=== PATIENT | male | born 1990 | race Hispanic/Latino ===

== ENCOUNTER → 2022-05-15 | Day surgery (SDC) | payer OTHER ==
[~2022-05-15] MED LIST: DEXAMETHASONE SOD PHOS INJ 4 MG/ML SDV ONE; EPINEPHRINE HCL 1:1000 1ML 1 MG/ML AMP ONE; KETOROLAC TROMETHAMINE 30 MG/ML VIAL ONE; LIDOCAINE HCL 2% LOCAL INJ 5 ML SDV VIAL INJ ONE; MUPIROCIN 2% OINT 22 GM TUBE ONE; OFLOXACIN 0.3% (OTIC SOL) 5 ML BTL ONE; ONDANSETRON HCL INJ 2MG/ML 2ML 2 MG/ML VIAL ONE; POVIDONE IODINE 0.05% 0.05 % ML PO ONE; PROPOFOL IV EMULSION 10 MG/ML 20 ML VIAL ONE; ROCURONIUM BROMIDE 10 MG/ML 5ML VIAL IV ONE; SEVOFLURANE INHAL SOLN 250 ML PEN BTL ONE; SUCCINYLCHOLINE CHLORIDE 20 MG/ML 10ML VIAL ONE
[2022-05-15 13:52] VITALS: BP 120/73
== END | disposition home or self-care (01) ==
LOC: OR 08:44
PROVIDERS: ATTEND Otolaryngology Otolaryngology/Facial Plastic Surgery
DX: H72.92 Unspecified perforation of tympanic membrane, left ear (principal); H66.92 Otitis media, unspecified, left ear; H90.72 Mixed conductive and sensorineural hearing loss, unilateral, left ear, with unrestricted hearing on the contralateral side
CPT/HCPCS: 15769; 69631; J0171; J0330; J1100; J1885; J2001; J2405; J2704